=== PATIENT | female | born 1960 | race Caucasian/White ===

== ENCOUNTER → 2016-06-16 | Outpatient (CLI) | payer OTHER ==
--- NOTE | 2016-06-16 15:30 | RAD ---
Indication follow-up pulmonary nodule. Noncontrast imaging through the chest was performed and is compared to an examination 03/26/2015. Imaging through the upper abdomen is unremarkable. There is no significant hilar or mediastinal adenopathy. Coronary artery calcification is noted. There is a nodule in the right upper lobe, series 3 image 93 not changed significantly compared to the previous study. It measures approximately 3 mm. An additional irregular spiculated mass, measuring approximately 1 cm is seen in the right upper lobe which is new relative to the previous exam (image 109) and is highly suspect for primary malignancy. (Image guided biopsy or PET scanning should be considered for additional evaluation.) There is a small nodular opacity in the left upper lobe peripherally, measuring approximately 2 to 3 mm, image 85 appearing similar to the previous study IMPRESSION: New, 1 cm, spiculated mass in the right upper lobe highly suspect for primary malignancy PQRS Compliance Statement: One or more of the following individualized dose reduction techniques were utilized for this examination: 1. Automated exposure control 2. Adjustment of the mA and/or kV according to patient size 3. Use of iterative reconstruction technique
== END | disposition home or self-care (01) ==
LOC: CT 14:16
PROVIDERS: ATTEND Family Medicine
DX: R91.1 Solitary pulmonary nodule (principal)
CPT/HCPCS: 71250

== ENCOUNTER → 2016-07-09 | Day surgery (SDC) | payer OTHER ==
[~2016-07-09] MED LIST: ALPR0.5T6 PO; AMIT10TA PO; FENTANYL PF 100 MCG/2 ML VIAL. IV PRN; HYDROMORPHONE 2 MG/ML VIAL. IV PRN; IV RINGERS,LACTATED 1000ML 1,000 ML IV SCH; LIDOCAINE 1% 1 ML SYRINGE. ID PRN; LIDOCAINE 2% PF Vial for OR 5 ML VIAL. ONE; MORPHINE SULFATE 2 MG/ML DISP.SYRIN. IV PRN; NAPR500T PO; ONDANSETRON PF 4 MG/2 ML VIAL. IV PRN; PROAIR HFA8.5 GM INH; PROCHLORPERAZINE 10 MG/2 ML VIAL. IV PRN; PROPOFOL 0 ML IV ONE; PROPOFOL 20 ML IV ONE
[2016-07-09 10:34] VITALS: BP 135/64
== END ==
LOC: ENDOS 08:29
PROVIDERS: ATTEND Internal Medicine Gastroenterology
DX: Z12.11 Encounter for screening for malignant neoplasm of colon (principal); Z86.010 Personal history of colon polyps; F32.9 Major depressive disorder, single episode, unspecified; F41.9 Anxiety disorder, unspecified; E78.00 Pure hypercholesterolemia, unspecified; J44.9 Chronic obstructive pulmonary disease, unspecified
CPT/HCPCS: 45378; J2704

== ENCOUNTER → 2016-09-04 | Outpatient (CLI) | payer OTHER ==
[2016-07-09 10:34] VITALS: BP 135/64
[~2016-09-04] MED LIST changes: -FENTANYL PF 100 MCG/2 ML VIAL. IV PRN; +GADOBUTROL 7.5 MMOL/7.5 ML VIAL IV ONE; -HYDROMORPHONE 2 MG/ML VIAL. IV PRN; -IV RINGERS,LACTATED 1000ML 1,000 ML IV SCH; -LIDOCAINE 1% 1 ML SYRINGE. ID PRN; -LIDOCAINE 2% PF Vial for OR 5 ML VIAL. ONE; -MORPHINE SULFATE 2 MG/ML DISP.SYRIN. IV PRN; -ONDANSETRON PF 4 MG/2 ML VIAL. IV PRN; -PROCHLORPERAZINE 10 MG/2 ML VIAL. IV PRN; -PROPOFOL 0 ML IV ONE; -PROPOFOL 20 ML IV ONE
--- NOTE | 2016-09-04 12:35 | RAD ---
PROCEDURE MRI of the brain without and with contrast 09/04/2016 HISTORY Headaches. TECHNIQUE Unenhanced T1 weighted sagittal and axial and FLAIR, gradient echo, T2 weighted and diffusion weighted axial images of the brain were obtained. After the intravenous administration of 7.5 cc of Gadavist, enhanced T1 weighted axial and coronal images of the brain were obtained. FINDINGS The ventricles and sulci are within normal limits in size and configuration. Patchy, confluent and multiple small focal areas of abnormally increased signal intensity are seen within the periventricular and subcortical white matter both cerebral hemispheres along with the bradford on the FLAIR and T2 weighted images. These are nonspecific but are felt to most likely represent areas of small vessel ischemic disease. No acute parenchymal abnormality is seen. There is no MRI evidence of acute ischemia/infarction. No abnormal area of contrast enhancement is seen. No extra-axial fluid collection is noted. Mild to moderate mucosal thickening is seen scattered throughout the paranasal sinuses. Normal flow voids are seen within the major vascular structures surrounding the brain parenchyma. IMPRESSION No acute parenchymal abnormality is seen. Electronically signed by: Kirit Baumann MD (Sep 04, 2016 12:34:09)
== END | disposition home or self-care (01) ==
LOC: MRI 10:05
PROVIDERS: ATTEND Internal Medicine Pulmonary Disease
DX: R51 Headache (principal)
CPT/HCPCS: 70553; A9585

== ENCOUNTER → 2016-11-26 | Outpatient (CLI) | payer OTHER ==
[2016-07-09 10:34] VITALS: BP 135/64
[~2016-11-26] MED LIST changes: -GADOBUTROL 7.5 MMOL/7.5 ML VIAL IV ONE
--- NOTE | 2016-11-27 13:05 | RESP ---
DATE OF SERVICE: 11/26/2016 ATTENDING PHYSICIAN: Dr. Rosaura Huntley. The patient underwent PFTs on 11/26/[address] [facility]. The patient's FVC was 3.2 which is 85% of predicted. FEV1 was 2.28 which is 77% of predicted. The FEV1/FVC ratio was normal. FEF 25-75 was 53% of predicted. There was no significant response to bronchodilators. Lung volumes showed increased total lung capacity of 137% predicted and residual volume 233% of predicted. Diffusion capacity was 79% of predicted. IMPRESSION: 1. Spirometry findings are suggestive of mild obstructive airway disease/small airway dysfunction. 2. No response to bronchodilators. 3. Lung volumes consistent with air trapping and hyperinflation. 4. Mildly reduced diffusion capacity DINA SORIANO MD DR: CARLOS/nts JOB#: [id number] / [id number] ROSAURA Car MD MTDD
== END | disposition home or self-care (01) ==
LOC: PF 10:24
PROVIDERS: ATTEND Internal Medicine Pulmonary Disease
DX: R91.8 Other nonspecific abnormal finding of lung field (principal)
CPT/HCPCS: 94060; 94729

== ENCOUNTER → 2016-11-27 | Outpatient (CLI) | payer OTHER ==
[2016-07-09 10:34] VITALS: BP 135/64
--- NOTE | 2016-11-27 13:40 | RAD ---
CT of the chest without contrast, 11/27/2016: History: Lung nodule follow-up Noncontrast scans were obtained with multiplanar reconstructions produced. Comparison is made to a study from 06/16/2016. There is moderate calcific plaquing of the thoracic aorta without evidence of aneurysm. Mild scattered coronary calcifications are present. The heart is not enlarged. No mediastinal adenopathy is seen. There are mild emphysematous changes in the lungs. There are several scattered calcified granulomata. There is a 10 mm noncalcified nodule in the right upper lobe as seen on image 107 of series #3. It has shown no definite change in size. Its margins are slightly lobulated. A tiny opacity in the lateral aspect of the left upper lobe as seen on image 85 of series #3 is unchanged. No new or enlarging pulmonary nodules are seen. There is no evidence of pleural fluid. There are moderate scattered spurs in the spine. There is an unchanged mild superior endplate deformity at approximately T12. IMPRESSION: 1. Emphysema. 2. Old healed granulomatous disease in the chest. 3. Unchanged pulmonary nodules, the largest of which lies in the right upper lobe as described above. Further CT surveillance is suggested to exclude a slowly growing neoplasm. PQRS Compliance Statement: One or more of the following individualized dose reduction techniques were utilized for this examination: 1. Automated exposure control 2. Adjustment of the mA and/or kV according to patient size 3. Use of iterative reconstruction technique
== END ==
LOC: CT 10:00
PROVIDERS: ATTEND Internal Medicine Pulmonary Disease
DX: R91.8 Other nonspecific abnormal finding of lung field (principal); J43.9 Emphysema, unspecified; I25.10 Atherosclerotic heart disease of native coronary artery without angina pectoris; M43.8X4 Other specified deforming dorsopathies, thoracic region
CPT/HCPCS: 71250

== ENCOUNTER → 2017-01-18 | Outpatient (CLI) | payer OTHER ==
[2016-07-09 10:34] VITALS: BP 135/64
--- NOTE | 2017-01-18 13:07 | RAD ---
Indication palpable nodule. Grayscale imaging was performed targeted to a palpable nodule in the area of the left labia. Corresponding to the palpable finding is an 8 mm solid nodule. Some vascularity is seen surrounding the nodule. IMPRESSION: 8 mm solid nodule corresponding to the palpable abnormality in the left labia
== END | disposition home or self-care (01) ==
LOC: US 10:20
PROVIDERS: ATTEND Nurse Practitioner Family
DX: R22.32 Localized swelling, mass and lump, left upper limb (principal)
CPT/HCPCS: 76881

== ENCOUNTER → 2017-08-27 | Outpatient (CLI) | payer OTHER | END | disposition home or self-care (01) | LOC: CT 12:14 | DX: J43.9 Emphysema, unspecified (principal); I25.10 Atherosclerotic heart disease of native coronary artery without angina pectoris; I70.0 Atherosclerosis of aorta | CPT/HCPCS: 71250 ==

== ENCOUNTER → 2018-08-19 | Outpatient (CLI) | payer OTHER ==
[2016-07-09 10:34] VITALS: BP 135/64
[~2018-08-19] MED LIST changes: +ALBU2.5V8 INH; +NAPR-683 PO; -NAPR500T PO; -PROAIR HFA8.5 GM INH
--- NOTE | 2018-08-19 14:57 | RAD ---
CT of the chest without contrast, 08/19/2018: HISTORY: Follow-up lung nodule Noncontrast scans were obtained and compared to a study from 08/27/2017. Mild emphysematous changes are present in both lungs. There are several tiny calcified granulomata in the right lung. Mild unchanged linear bilateral apical opacities are compatible with scars. A tiny 4 mm subpleural nodule in the lateral aspect of the right upper lobe seen on image 73 of series #3 is unchanged. A 10 mm lobulated right upper lobe nodule seen on image 118 of series #3 appears unchanged. There is a suggestion of partial calcification of this nodule. A small elongated peripheral parenchymal opacity seen laterally in the left upper lobe on image 95 of series #3 is unchanged and is likely a scar. A tiny 3 mm peripheral nodule in the posterior lateral aspect of left upper lobe seen on image 76 of series #3 is unchanged. Several other very tiny similar parenchymal opacities appear stable. No pulmonary consolidation is seen. There is no evidence of pleural fluid. There is moderate calcific plaquing of the thoracic aorta and its branches without evidence of aneurysm. Scattered coronary artery calcifications are again noted. The heart is not enlarged. Several small mediastinal lymph nodes are seen without evidence of pathologic enlargement. Scattered degenerative changes are present in the spine. IMPRESSION: 1. Mild emphysema with parenchymal scarring. 2. Unchanged pulmonary nodules. 3. Coronary artery disease. PQRS Compliance Statement: One or more of the following individualized dose reduction techniques were utilized for this examination: 1. Automated exposure control 2. Adjustment of the mA and/or kV according to patient size 3. Use of iterative reconstruction technique Electronically signed by: Liam Mejia MD (08/19/2018 2:54 PM) [facility]
== END | disposition home or self-care (01) ==
LOC: CT 10:45
PROVIDERS: ATTEND Internal Medicine Pulmonary Disease
DX: J43.9 Emphysema, unspecified (principal); J98.4 Other disorders of lung; R91.8 Other nonspecific abnormal finding of lung field; I25.10 Atherosclerotic heart disease of native coronary artery without angina pectoris
CPT/HCPCS: 71250

== ENCOUNTER → 2019-05-01 | Outpatient (CLI) | payer OTHER ==
[2016-07-09 10:34] VITALS: BP 135/64
[~2019-05-01] MED LIST changes: +REGADENOSON 0.4 MG/5 ML DISP.SYRIN. IV ONE
--- NOTE | 2019-05-01 09:57 | CARD ---
MR#: [id number] Date of Study: 05/01/2019 Ordering Physician: BENJI GOMEZ, Referring Physician: BENJI GOMEZ, Tech: Claire Salinas APPROVED REPORT EXAM: Two-dimensional and M-mode echocardiogram with Doppler and color Doppler. INDICATION COPD Murmur RISK FACTORS Smoking 2D DIMENSIONS Left Atrium(2D)3.3 (1.6-4.0cm)IVSd1.4 (0.7-1.1cm) Aortic Root(2D)2.9 (2.0-3.7cm)LVDd4.6 (3.9-5.9cm) LVOT Diameter2.0 (1.8-2.4cm)PWd1.1 (0.7-1.1cm) LVDs2.5 (2.5-4.0cm)FS (%) 46.7 % SV77.9 mlLVEF(%)78.2 (>50%) Aortic Valve AoV Peak Yinka.138.6cm/sAoV VTI29.8cm AO Peak GR.7.7mmHgLVOT Peak Yinka.78.5cm/s LVOT VTI 19.13cmAO Mean GR.4mmHg DIAZ (VMAX)1.15gr2XEX (VTI)2.10cm2 Mitral Valve MV E Csuvezry65.6cm/sMV DECEL [id number] MV A Wnibqepz28.0cm/sMV TWS11fy E/A Ratio0.9MVA (PHT)3.52cm2 TDI E/Lateral E'9.9E/Medial E'13.3 Pulmonary Valve PV Peak Mfaptfbs37.8cm/sPV Peak Grad.4mmHg Tricuspid Valve TR P. Ekbqsmfg346yx/sRAP KUWIJZPA7brRv TR Peak Gr.46zzPcHHFA46iwZs Pulmonary Vein S1 Hnrwhfff90.8cm/sD2 Zloakltf57.6cm/s PVa [id number] LEFT VENTRICLE The left ventricle is normal size. There is mild to moderate concentric left ventricular hypertrophy. The left ventricular systolic function is normal and the ejection fraction is within normal range. T he Ejection Fraction is 55-60%. There is normal LV segmental wall motion. Transmitral Doppler flow pa ttern is Grade I-abnormal relaxation pattern. RIGHT VENTRICLE The right ventricle is normal size. There is normal right ventricular wall thickness. The right ventr icular systolic function is normal. ATRIA The left atrium size is normal. The right atrium size is normal. The interatrial septum is intact wit h no evidence for an atrial septal defect or patent foramen ovale as noted on 2-D or Doppler imaging. AORTIC VALVE The aortic valve is calcified and not well visualized. Doppler and Color Flow revealed no significant aortic regurgitation. There is no significant aortic valvular stenosis. MITRAL VALVE The mitral valve is thickened but opens well. There is no evidence of mitral valve prolapse. There is no mitral valve stenosis. Doppler and Color-flow revealed trace mitral regurgitation. TRICUSPID VALVE The tricuspid valve is normal in structure and function. Doppler and Color Flow revealed trace tricus pid regurgitation with an estimated PAP of 28 mmHg. There is no tricuspid valve stenosis. PULMONIC VALVE The pulmonic valve is not well visualized. Doppler and Color Flow revealed no pulmonic valvular regur gitation. There is no pulmonic valvular stenosis. GREAT VESSELS The aortic root is normal in size. The IVC is normal in size and collapses >50% with inspiration. PERICARDIAL EFFUSION There is no evidence of significant pericardial effusion. Critical Notification Critical Value: No <Conclusion> The left ventricular systolic function is normal and the ejection fraction is within normal range. Th e Ejection Fraction is 55-60%. There is normal LV segmental wall motion. The aortic valve is calcified and not well visualized. Signed by : Fernandez Duran, Electronically Approved : 05/01/2019 09:56:46
--- NOTE | 2019-05-01 11:44 | RAD ---
MR#: [id number] Date of Study: 05/01/2019 Ordering Physician: BENJI GOMEZ, Referring Physician: BENJI GOMEZ, Tech: ROSETTA Rueda, RDDE, T APPROVED REPORT Patient Location: OUT-PATIENT Laterality:Bilateral Indications Bruit RT Risk Factors Smoking Doppler Spectral Velocity Analysis Right Left pCCA 216/26 cm/spCCA 98/18 cm/s mCCA 116/26 cm/smCCA 79/21 cm/s dCCA 125/26 cm/sdCCA 113/24 cm/s ECA 155/ cm/sECA 222/ cm/s pICA 68/24 cm/spICA 208/49 cm/s Iesha 71/31 cm/smICA 159/52 cm/s dICA 87/35 cm/sdICA 105/32 cm/s ICA/CCA 0.40ICA/CCA 2.12 Findings Grayscale images of the bilateral common carotid, external and internal carotid vessels reveals moder ate diffuse plaque. Based on velocities and spectral waveforms there is likely moderate stenosis involving the right comm on carotid artery. The right internal carotid artery demonstrates normal velocities and spectral waveforms and overall 0 to less than 50% stenosis by velocity criteria. There is likely a moderate stenosis involving the ri ght external carotid artery. The right vertebral artery demonstrates reverse flow pattern suggestive of subclavian steal and probable subclavian stenosis. The subclavian velocities on the right side are blunted and monophasic and wave pattern. Correlate with clinical examination. The left internal carotid artery demonstrates a moderate 50-69% stenosis in the proximal segment base d on velocity criteria. There is likely also a moderate stenosis involving the left external carotid artery. The vertebral velocities are antegrade and normal on the left side. Critical Notification Critical Value: No <Conclusion> 1. Moderate right common carotid, left internal carotid and bilateral external carotid arterial disea se based on velocity criteria 2. Retrograde right vertebral flow suggestive of subclavian disease. 3. Consider CT scan of the arch vessels and carotid vessels for further delineation of anatomy. Signed by : Fernandez Duran, Electronically Approved : 05/01/2019 11:44:45
--- NOTE | 2019-05-01 12:30 | RAD ---
MR#: [id number] Date of Study: 05/01/2019 Ordering Physician: BENJI GOEMZ, Referring Physician: CANDICE SHEPPARD Tech: SAM Major ARRT (R) (N) APPROVED REPORT Test Type: Pharmacological Stress Nurse/Tech: Yareli Alva RN Test Indications: Chest pain Cardiac History: Family history,smoker,COPD Medications: See Electronic Medical Record Medical History: See Electronic Medical Record Resting ECG: SR Resting Heart Rate: 67 bpm Resting Blood Pressure: 112/43mmHg Pretest Chest Pain: No chest pain Nurse/Tech Notes S1,S2 and lungs slightly diminished in the bases. Consent: The procedure was explained to the patient in lay terms. Informed consent was witnessed. Anthony eout was entered into [employer]. History and Stress Test performed by SAM Major ARRT (R) (N) Pharm. Details Pharmacologic stress testing was performed using 0.4mg per 5ml of regadenoson given intravenously ove r 7-10 seconds. Stress Symptoms Dyspnea, weird feeling,Nausea POST EXERCISE Reason for Termination: Infusion complete Target HR: No 93% of Maximum Predicted HR: 136 bpm Max Blood Pressure: 130/50mmHg Blood Pressure response to exercise: Normal blood pressure response during stress. Heart Rate response to exercise: WNL Chest Pain: No. Arrhythmia: Yes. PVC ST Change: No. INTERPRETATION Stress EKG Conclusion: No evidence of stress induced EKG changes. Imaging Protocol IMAGE PROTOCOL: Rest Tc-99m/stress Tc-99m 1 day Rest: Stress: Viability: Radiopharm.Tc99m OorgxvtdhOx40c Sestamibi Vdnz65bEi 32mCi Img Date 05/01/2019 05/01/2019 Inj-Img Zpnq74jqc. 90min. Rest Admin Site:IV - Right AntecubitalAdministrator:SAM Major ARRT (Min)(N) Stress Admin Site: IV - Right AntecubitalAdministrator: SAM Major ARRT (Min)(N) STRESS DATA End Diast. Vol.60.0mlAv. Heart Rate79.0bpm End Syst. Vol.9.0mlCO Index BSA0.0L/min Myocardial Dlmh971.0gEject. Kkxrbkcw49.0% Stress Rates Pk. Fill Rate4.17EDV/secLVtime Pk. Fill 210.76msec Pk. Empty Rate5.44ESV/secLVtime Pk. Zotpj414.92msec /3 Pk. Fill1.39EDV/sec Stress Scores Regional WT1.00Summed WT4.00 Regional WM0.00Summed WM2.00 The rest and stress images show normal perfusion, normal contraction and thickening. LV Perf. Quant 17 Seg. SSS0.00 17 Seg. SRS4.00 17 Seg. SDS0.00 Stress Defect Extent (% LAD)0.00Rest Defect Extent (% LAD)16.90Rev. Defect Extent (% LAD)0.00 Stress Defect Extent (% LCX) 0.00Rest Defect Extent (% LCX)0.00Rev. Defect Extent (% LCX)0.00 Stress Defect Extent (% RCA)0.00Rest Defect Extent (% RCA)0.00Rev. Defect Extent (% RCA)0.00 Stress Defect Extent (% HO)0.00Rest Defect Extent (% HO)6.70Rev. Defect Extent (% HO)0.00 Other Information Quality:Good Risk Assessment: Low Risk Conclusion 1. No evidence of EKG changes with stress testing. 2. Normal perfusion at stress/rest. 3. Low risk study. 4. EF > 60%. Signed by : Fernandez Duran, Electronically Approved : 05/01/2019 12:30:00
== END | disposition home or self-care (01) ==
LOC: NM 08:20
PROVIDERS: ATTEND Internal Medicine Cardiovascular Disease
DX: I35.8 Other nonrheumatic aortic valve disorders (principal); I51.7 Cardiomegaly; I70.0 Atherosclerosis of aorta; I65.23 Occlusion and stenosis of bilateral carotid arteries; J44.9 Chronic obstructive pulmonary disease, unspecified; F17.200 Nicotine dependence, unspecified, uncomplicated
CPT/HCPCS: 78452; 93017; 93306; 93880; A9500; J2785

== ENCOUNTER 2020-11-29 07:56 | Emergency (ER) | payer OTHER ==
[2016-07-09 10:34] VITALS: BP 135/64
[~2020-11-29] VITALS: Ht 170.2 cm; Wt 63.6 kg
[~2020-11-29 07:56] MED LIST changes: -REGADENOSON 0.4 MG/5 ML DISP.SYRIN. IV ONE
[2020-11-29] MEDS ORDERED: PRED20TA PO (08:12)
[2020-11-29] MEDS ORDERED: CYCL10TA2 PO (08:12)
[2020-11-29] MEDS ORDERED: IBUP-1027 PO (08:12)
--- NOTE | 2020-11-29 08:13 | PHYS DOC ---
Past Medical History Past Medical History: COPD Past Surgical History: General Adult EDM: Chief Complaint: NECK PAIN HPI: HPI: Patient is a 60 year old female who presented to ER due to left-sided neck pain. Patient woke up this morning with left-sided neck pain, does not denies injury. Patient says she cannot move her neck to the left side because of the stiffness. Patient denies any weakness or numbness in her upper extremities. Patient denies any chest pain, no trouble breathing, no cough, no fever. Patient denies any headache. Review of Systems: Review of Systems: Constitutional: Denies fever or chills. [] Eyes: Denies change in visual acuity. [] HENT: Denies nasal congestion or sore throat. [] Respiratory: Denies cough or shortness of breath. [] Cardiovascular: Denies chest pain or edema. [] GI: Denies abdominal pain, nausea, vomiting, bloody stools or diarrhea. [] : Denies dysuria. [] Musculoskeletal: Positive for neck pain and stiffness Integument: Denies rash. [] Neurologic: Denies headache, focal weakness or sensory changes. [] Endocrine: Denies polyuria or polydipsia. [] Lymphatic: Denies swollen glands. [] Psychiatric: Denies depression or anxiety. [] Heart Score: C/O Chest Pain: N/A Risk Factors: Risk Factors: DM, Current or recent (<one month) smoker, HTN, HLP, family history of CAD, obesity. Risk Scores: Score 0 - 3: 2.5% MACE over next 6 weeks - Discharge Home Score 4 - 6: 20.3% MACE over next 6 weeks - Admit for Clinical Observation Score 7 - 10: 72.7% MACE over next 6 weeks - Early Invasive Strategies Allergies: Allergies: Allergies Coded Allergies Type Severity Reaction Last Updated Verified No Known Drug Allergies 07/09/16 No Physical Exam: PE: Constitutional: Well developed, well nourished, no acute distress, non-toxic appearance. [] HENT: Normocephalic, atraumatic, bilateral external ears normal, oropharynx moist, no oral exudates, nose normal. [] Eyes: PERRLA, EOMI, conjunctiva normal, no discharge. [] Neck: Left-sided neck muscle with tender and tense with stiffness. There is no cervical vertebral tenderness to palpation Cardiovascular:Heart rate regular rhythm, no murmur [] Lungs & Thorax: Bilateral breath sounds clear to auscultation [] Abdomen: Bowel sounds normal, soft, no tenderness, no masses, no pulsatile masses. [] Skin: Warm, dry, no erythema, no rash. [] Back: No tenderness, no CVA tenderness. [] Extremities: No tenderness, no cyanosis, no clubbing, ROM intact, no edema. [] Neurologic: Alert and oriented X 3, normal motor function, normal sensory function, no focal deficits noted. [] Psychologic: Affect normal, judgement normal, mood normal. [] EKG: EKG: [] Radiology/Procedures: Radiology/Procedures: [] Course & Med Decision Making: Course & Med Decision Making Pertinent Labs and Imaging studies reviewed. (See chart for details) [] Dragon Disclaimer: Dragon Disclaimer: This electronic medical record was generated, in whole or in part, using a voice recognition dictation system. Departure Departure Impression: Primary Impression: Torticollis, acute Disposition: HOME / SELF CARE / HOMELESS Condition: STABLE Referrals: MALINI BESS MD (PCP) FOLLOW UP WITH YOUR DOCTOR ON WEDNESDAY FOR REEVALUATION. Patient Instructions: Torticollis, Acute Additional Instructions: Thank you for visiting our Emergency Department. We appreciate you trusting us with your care. If any additional problems come up don't hesitate to return to visit us. Please follow up with your primary care provider so they can plan additional care if needed and know about the problem that you had. If symptoms worsen come back to the Emergency Department. Any concerning symptoms that start such as chest pain, shortness of air, weakness or numbness on one side of the body, running high fevers or any other concerning symptoms return to the ER. Scripts Ibuprofen (IBUPROFEN) 400 Mg Tablet 400 MG PO PRN Q6HRS PRN for NECK PAIN, #30 TAB Prov: SHELBY PALOMINO DO 11/29/20 Prednisone (PREDNISONE) 20 Mg Tablet 1 TAB PO DAILY for 7 Days, #7 TAB Prov: SHELBY PALOMINO DO 11/29/20 Cyclobenzaprine Hcl (CYCLOBENZAPRINE HCL) 10 Mg Tablet 1 TAB PO TID PRN for MUSCLE SPASMS, #20 TAB Prov: SHELBY PALOMINO DO 11/29/20 SHELBY PALOMINO DO Nov 29, 2020 08:13
[2020-11-29] MEDS ORDERED: methylPREDNISolone SOD SUCC PF 125 MG/2 ML VIAL. IM ONE (08:15)
[2020-11-29] MEDS ORDERED: KETOROLAC 60 MG/2 ML VIAL. IM ONE (08:15)
[2020-11-29] MEDS ORDERED: ORPHENADRINE CITRATE 60 MG/2 ML VIAL. IM ONE (08:15)
== END 2020-11-29 08:31 | disposition home or self-care (01) ==
LOC: ER 07:56
DX: M43.6 Torticollis (principal); J44.9 Chronic obstructive pulmonary disease, unspecified
CPT/HCPCS: 96372; 99284; J1885; J2360; J2930

== ENCOUNTER → 2021-09-29 | Outpatient (CLI) | payer OTHER ==
[2020-11-29 08:06] VITALS: BP 151/66
[~2021-09-29] MED LIST changes: +CYCL10TA19 PO; +IBUP-1027 PO; +PRED20TA PO
--- NOTE | 2021-09-29 14:18 | RAD ---
MR#: [id number] Date of Study: 09/29/2021 Ordering Physician: BENJI GOMEZ, Referring Physician: BENJI GOMEZ, Tech: Blas De Anda MBA, RDMS, RVT, RDCS, RTR APPROVED REPORT Patient Location: OUT-PATIENT Laterality:Bilateral Indications RIGHT CAROTID BRUIT Doppler Spectral Velocity Analysis Right Left pCCA 201/28 cm/spCCA 123/24 cm/s mCCA 160/33 cm/smCCA 136/29 cm/s dCCA 180/36 cm/sdCCA 127/29 cm/s Bulb 107/30 cm/sBulb 151/28 cm/s ECA 272/ cm/sECA 255/ cm/s pICA 84/20 cm/spICA 230/57 cm/s Iesha 83/21 cm/smICA 235/54 cm/s dICA 53/18 cm/sdICA 167/43 cm/s Vert. Vert. 139/ cm/s Subcl. 120/ cm/sSubcl. 164/ cm/s ICA/CCA 0.42ICA/CCA 1.91 Findings Grayscale images of extracranial carotid arteries bilaterally showed mild to moderate diffuse atheros clerosis. Spectral waveform and color duplex analysis was performed. The right common carotid arter y showed increased peak systolic velocities in the proximal to mid segment consistent with probably m oderate 50 to 69% stenosis. The right external carotid artery showed increased velocities consistent with greater than 70% stenosis. The right internal carotid artery showed normal velocities consiste nt with 0 to less than 50% stenosis. The ICA to CCA ratio was within normal event. The right verteb ral artery showed reversal of flow probably secondary to significant right subclavian artery stenosis . The proximal and mid segments of the left internal carotid artery showed increased velocities consist ent with moderate 50 to 69% stenosis. The left external carotid artery showed increased velocities s uggestive of moderate stenosis. The common carotid artery did not show any significant stenosis. Th e left vertebral artery showed antegrade flow with normal velocities. Critical Notification Critical Value: No <Conclusion> Carotid arterial duplex scan showed 50 to 69% stenosis involving the right common carotid artery, gre ater than 70% stenosis involving the right external carotid artery, reversal of flow in the right jorge tebral artery suggestive of significant right subclavian artery stenosis, moderate 50 to 69% stenosis involving the right internal and external carotid arteries. Of note, these lesions were described i n prior carotid arterial duplex scan from 05/01/2019. Patient has symptoms suggestive of right subcl neo steal, suggest CTA for further evaluation. Signed by : Tommie Ellis, Electronically Approved : 09/29/2021 14:18:18
--- NOTE | 2021-11-04 10:11 | CARD ---
MR#: [id number] Account#: Date of Study: 09/29/2021 Ordering Physician: David: Chanell Hall RDCS APPROVED REPORT EXAM: Two-dimensional and M-mode echocardiogram with Doppler and color Doppler. Other Information Quality : AverageHR: 71bpm Rhythm : NSR INDICATION Murmur 2D DIMENSIONS Left Atrium(2D)4.0 (1.6-4.0cm)IVSd1.0 (0.7-1.1cm) Aortic Root(2D)2.8 (2.0-3.7cm)LVDd4.1 (3.9-5.9cm) LVOT Diameter2.1 (1.8-2.4cm)PWd1.2 (0.7-1.1cm) LVDs2.1 (2.5-4.0cm)FS (%) 48.9 % SV61.4 ml Aortic Valve AoV Peak Yinka.142.4cm/sAoV VTI28.8cm AO Peak GR.8.1mmHgLVOT Peak Yinka.91.9cm/s LVOT VTI 19.80cmAO Mean GR.5mmHg DIAZ (VMAX)1.21no9KQK (VTI)2.35cm2 Mitral Valve MV E Jylbvlgx72.9cm/sMV DECEL [id number] MV A Uxecsfnq86.8cm/sMV DVC78cf E/A Ratio0.8MVA (PHT)5.23cm2 TDI E/Lateral E'3.5E/Medial E'5.2 Pulmonary Valve PV Peak Txateeja60.0cm/sPV Peak Grad.4mmHg Tricuspid Valve TR P. Dlugohfd220fg/sTR Peak Gr.23mmHg Pulmonary Vein S1 Jjyxjctx84.8cm/sD2 Fiyxpdku53.8cm/s PVa duvtoomh882fgny LEFT VENTRICLE The left ventricle is normal size. There is mild concentric left ventricular hypertrophy. The left ve ntricular systolic function is normal and the ejection fraction is within normal range. LV ejection f raction is 55 to 60%. There is normal LV segmental wall motion. 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 No left ventricle thrombus noted on this study. There is n o ventricular septal defect visualized. There is no left ventricular aneurysm. There is no mass noted in the left ventricle. RIGHT VENTRICLE The right ventricle is normal size. There is normal right ventricular wall thickness. The right ventr icular systolic function is normal. ATRIA The left atrium size is normal. The right atrium size is normal. The interatrial septum is intact wit h no evidence for an atrial septal defect or patent foramen ovale as noted on 2-D or Doppler imaging. AORTIC VALVE The aortic valve is mildly sclerotic. The aortic valve is trileaflet. Doppler and Color Flow revealed no significant aortic regurgitation. There is no significant aortic valvular stenosis. There is no a ortic valvular vegetation. MITRAL VALVE The mitral valve is normal in structure and function. There is no evidence of mitral valve prolapse. There is no mitral valve stenosis. Doppler and Color-flow revealed trace mitral regurgitation. TRICUSPID VALVE The tricuspid valve is normal in structure and function. Doppler and Color Flow revealed trace tricus pid regurgitation. There is no tricuspid valve prolapse or vegetation. There is no tricuspid valve st enosis. PULMONIC VALVE The pulmonary valve is normal in structure and function. Doppler and Color Flow revealed no pulmonic valvular regurgitation. There is no pulmonic valvular stenosis. GREAT VESSELS The aortic root is normal in size. The ascending aorta is normal in size. The IVC is normal in size a nd collapses >50% with inspiration. PERICARDIAL EFFUSION There is no evidence of significant pericardial effusion. Critical Notification Critical Value: No <Conclusion> The left ventricle is normal size. The left ventricular systolic function is normal and the ejection fraction is within normal range. LV ejection fraction is 55 to 60%. There is mild concentric left ventricular hypertrophy. Doppler and Color Flow revealed no significant aortic regurgitation. There is no significant aortic valvular stenosis. Doppler and Color-flow revealed trace mitral regurgitation. Doppler and Color Flow revealed trace tricuspid regurgitation. Signed by : James Coronado MD Electronically Approved : 09/29/2021 17:24:23
== END ==
LOC: US 12:37
PROVIDERS: ATTEND Internal Medicine Cardiovascular Disease
DX: I65.23 Occlusion and stenosis of bilateral carotid arteries (principal); I35.1 Nonrheumatic aortic (valve) insufficiency; I51.7 Cardiomegaly; R09.89 Other specified symptoms and signs involving the circulatory and respiratory systems
CPT/HCPCS: 93306; 93880; C8929

== ENCOUNTER → 2021-10-27 | Outpatient (CLI) | payer OTHER ==
[2020-11-29 08:06] VITALS: BP 151/66
--- NOTE | 2021-10-28 07:47 | RAD ---
Examination: CT chest without contrast HISTORY: History of lung nodule follow up COMPARISON: 08/19/2018 TECHNIQUE: Axial CT images of chest were performed without contrast. Coronal and sagittal reformats a re performed Exposure: One or more of the following individualized dose reduction techniques were utilized for thi s examination: 1. Automated exposure control 2. Adjustment of the mA and/or kV according to patient size 3. Use of iterative reconstruction technique FINDINGS: The central airways are patent. The heart size grossly appears unremarkable. Moderate aortic atherosc lerosis. Coronary artery calcifications.No radiologically significant mediastinal lymphadenopathy. Mi ld bilateral lung emphysematous changes. Calcified granuloma identified in the right upper lobe lung measuring 8mm. Faint atelectasis or infiltrate right lower lobe lung. Faint scattered nodules with th e largest measuring 3 mm in the left upper lobe lung similar to prior exam. The visualized noncontras reema liver, spleen, adrenals grossly appears unremarkable. Mild degenerative changes thoracic spine. IMPRESSION: 1. Unchanged scattered pulmonary nodules. 2. Mild bilateral lung emphysematous changes. 3. Faint atelectasis or infiltrate right lung base. Follow-up to resolution. Electronically signed by: Mayank Piper MD (10/27/2021 2:39 PM) [id number]
== END ==
LOC: CT 13:46
PROVIDERS: ATTEND Internal Medicine Critical Care Medicine
DX: R91.8 Other nonspecific abnormal finding of lung field (principal); J43.9 Emphysema, unspecified; I70.0 Atherosclerosis of aorta; I25.10 Atherosclerotic heart disease of native coronary artery without angina pectoris; J84.10 Pulmonary fibrosis, unspecified; J98.11 Atelectasis
CPT/HCPCS: 71250